=== PATIENT | male | born 1940 | race Caucasian/White ===

== ENCOUNTER 2019-07-25 04:25 | Outpatient (RCR) | payer MEDICARE, MEDICAID, SELFPAY | END 2019-08-02 00:01 | LOC: LAB 04:25 | PROVIDERS: Family Provider Family Medicine; Visit Provider Nurse Practitioner Family | DX: I10 Essential (primary) hypertension (principal); R55 Syncope and collapse; N17.9 Acute kidney failure, unspecified | CPT/HCPCS: 36415 ×2; 80048 ×2; 85025 ==

== ENCOUNTER 2019-08-22 09:01 | Outpatient (RCR) | payer MEDICARE, MEDICAID, SELFPAY ==
[2019-08-22 09:33] LABS: Potassium 5.1 mmol/L (3.5-5.1)
== END 2019-09-02 23:59 | disposition home or self-care (01) ==
LOC: LAB 09:01
PROVIDERS: Family Provider Family Medicine; Visit Provider Nurse Practitioner Family
DX: N18.3 Chronic kidney disease, stage 3 (moderate) (principal)
CPT/HCPCS: 84132

== ENCOUNTER 2019-11-02 16:03 | Inpatient (IN) | payer MEDICARE, MEDICAID, SELFPAY ==
[2019-11-02] VITALS (42 sets, daily range): BP systolic 85–125; BP diastolic 46–77; PULSE 73–87; RESP 17–45; TEMP 36.2–36.4; O2SAT 90–98; BMI 42.5
--- NOTE | 2019-11-02 16:33 | W.ED.SOB ---
Documented by User: Karl Blount DO 11/03/19 14:52 HPI - SOB/Dyspnea General: Chief Complaint: Shortness of Breath/Dyspnea Stated Complaint: sob Time Seen by Provider: 11/02/19 16:33 History of Present Illness: HPI Narrative: 79-year-old male resident of [facility] presents with complaints to shortness of breath and cough he has a history of congestive heart failure and diabetes. Patient had some chest pain today it was relieved by nitro came into the emergency room after he had a chest x-ray showing questionable pneumonia and started on Levaquin they felt he continued to worsen so they sent him to the ER. The [place] [facility] has been prohibiting visitors for the last 2 weeks out of concern for comorbid pandemic in the nation. MD elicited complaint: shortness of breath Pertinent past history: congestive heart failure Onset (ago): day(s) Context: recent illness Timing: constant Severity: moderate Known history of: congestive heart failure FOR[facility]LY [facility] ED PFSH: Medical History Anemia Dementia Diastolic heart failure Encephalomalacia Right anterior temporal lobe as per previous MRI 2018 Hyperlipidemia Hypertension Nephrolithiasis Stage III chronic kidney disease TIA (transient ischemic attack) Type 2 diabetes mellitus Surgical History H/O lithotripsy History of laparotomy Due to bleeding ulcers Family History (Updated 11/02/19 @ 21:06 by Jeronimo Woodruff MD) Denies family history of Diabetes Dementia Social History Smoking and tobacco status: never smoked Alcohol intake: never Substance/Drug Use: never Housing: Custodial Marital status: / Current occupational status: retired Physical Exam Const: GENERAL APPEARANCE: cooperative and comfortable HENMT: COMMON NORMALS: normocephalic, head/scalp atraumatic, hearing grossly normal bilaterally, external ears normal, EAC's normal, TM's normal bilaterally, nasal mucous membranes and turbinates normal, moist oral mucous membranes and oropharynx normal HEAD & SCALP: normocephalic and atraumatic NOSE: nasal mucous membranes and turbinates normal EXTERNAL EAR: Yes external ears normal EXTERNAL AUDITORY CANAL: EAC's normal TYMPANIC MEMBRANE: TM's normal bilaterally Eye: COMMON NORMALS: PERRL, EOMs intact bilaterally, conjunctivae normal and no scleral icterus CONJUNCTIVA: Yes conjunctivae normal PUPIL: Yes PERRL Neck/C-Spine: COMMON NORMALS: full ROM, no lymphadenopathy, supple and no JVD Lymph: LYMPHATIC: no lymphadenopathy noted and no lymphedema noted Resp: COMMON NORMALS: normal respiratory effort, no retractions, no use of accessory muscles and clear to auscultation bilaterally AUSCULTATION: clear to auscultation bilaterally Cardio: COMMON NORMALS: no JVD, regular rate, regular rhythm and no murmurs RATE: regular rate RHYTHM: regular rhythm GI: COMMON NORMALS: soft to palpation and no hepatosplenomegaly AUSCULTATION: Yes normoactive bowel sounds PALPATION: Yes soft, No tender, No guarding and Yes no hepatosplenomegaly Extremity: COMMON NORMALS: normal to inspection, normal capillary refill, no clubbing, cyanosis or edema, no calf tenderness and no pedal edema Skin: COMMON NORMALS: no rashes or lesions noted GENERAL SKIN EXAM: no rashes or lesions noted Course Vital Signs: Vital signs: Vital Signs Temperature 98.5 F 11/03/19 12:00 Pulse Rate 97 11/03/19 12:03 Respiratory Rate 20 H 11/03/19 12:03 Blood Pressure 99/51 11/03/19 12:00 Pulse Oximetry 93 11/03/19 12:03 MDM - SOB/Dyspnea MDM Narrative: Medical decision making narrative: Initially seen by myself and initial labs ordered appears patient has pneumonia signed out to Dr. Kearney for definitive disposition Lab Data: Labs: Lab Results 11/02/19 11/02/19 11/02/19 Range/Units 16:28 16:28 16:28 WBC 14.3 H (4.0-10.0) 10^3/ uL RBC 4.05 L (4.1-5.3) 10^6/u L Hgb 11.5 L (11.7-16.6) g/dL Hct 37.4 L (42.0-52.0) % MCV 92.3 (80-94) fL MCH 28.4 (28.0-34.0) pg MCHC 30.7 (30.0-36.0) g/dL RDW 14.2 (12.1-15.1) % Plt Count 252 (130-400) 10^3/c mm MPV 10.9 H (7.4-10.4) fL Neut % (Auto) 85.9 % Lymph % (Auto) 6.7 % Bryan % (Auto) 6.6 % Eos % (Auto) 0.1 % Baso % (Auto) 0.1 % Neut # (Auto) 12.3 H (1.8-7.7) 10^3/u L Lymph # (Auto) 1.0 (0.8-4.8) 10^3/u L Bryan # (Auto) 0.9 (0.2-0.9) 10^3/u L Eos # (Auto) 0.0 (0.0-0.8) 10^3/u L Baso # (Auto) 0.0 (0.0-0.1) 10^3/u L Nucleated RBC % (a uto) 0 % Nucleated RBCs # 0.0 /100WBC Specimen Type Sample Site ABG pH (7.35-7.45) ABG pCO2 (35-45) mmHg ABG pO2 (80.0-100.0) mmH g ABG HCO3 (22-26) mmol/L ABG O2 Saturation ABG Base Excess (-2.0-2.0) mmol/ L Bello Test A-a O2 Gradient (5-10) mmHg Hematocrit (42-52) % Hgb O2 Saturation (95-100) % Carboxyhemoglobin (0.4-20.1) %THgb Methemoglobin (0.4-1.5) % Total Hemoglobin (14-18) g/dL Ionized Calcium (1.1-1.4) mmol/L O2 Delivery Device O2 Liters/Min % Therapeutic Recreation Specialist ID Sodium 138 (136-145) mmol/L Potassium 6.1 H (3.5-5.1) mmol/L Chloride 109 H (98-107) mmol/L Carbon Dioxide 20 L (22-29) mmol/L Anion Gap 15.1 (5-19) BUN 64 H (8-23) mg/dL Creatinine 4.5 H (0.7-1.2) mg/dL Glucose 143 H (65-115) mg/dL POC Glucose (70-110) mg/dL Calculated Osmolal ity 287 (285-295) mOsm/k g Calcium 8.9 (8.5-10.5) mg/dL Total Bilirubin 0.2 (0.15-1.2) mg/dL AST 25 (0-40) U/L ALT 8 (0-41) U/L Alkaline Phosphata se 95 (40-130) IU/L Troponin T Baselin e 334 H* (0-15) ng/mL Troponin T 120 Min nenana (0-15) ng/mL Delta Troponin T (0-10) ABS# NT-Pro-B Natriuret Pep 95485 H (0-450) pg/mL Total Protein 6.7 (6.6-8.7) g/dL Albumin 3.0 L (3.5-5.2) g/dL Globulin 3.7 (1.3-4.6) g/dL Urine Color (Yellow) Urine Appearance (CLEAR) Urine pH (5-7) Ur Specific Gravit y (1.005-1.030) Urine Protein (Negative) Urine Glucose (UA) (Normal) Urine Ketones (Negative) Urine Blood (Negative) Urine Nitrate (Negative) Urine Bilirubin (NEGATIVE) Urine Urobilinogen (Negative) mg/dL Ur Leukocyte Violette ase (Negative) Urine RBC (0-2) /hpf Urine WBC (0-5) /hpf Ur Squamous Epith Cells (0-5) Urine Bacteria (NONE) 11/02/19 11/02/19 11/02/19 Range/Units 17:02 18:14 18:29 WBC (4.0-10.0) 10^3/ uL RBC (4.1-5.3) 10^6/u L Hgb (11.7-16.6) g/dL Hct (42.0-52.0) % MCV (80-94) fL MCH (28.0-34.0) pg MCHC (30.0-36.0) g/dL RDW (12.1-15.1) % Plt Count (130-400) 10^3/c mm MPV (7.4-10.4) fL Neut % (Auto) % Lymph % (Auto) % Bryan % (Auto) % Eos % (Auto) % Baso % (Auto) % Neut # (Auto) (1.8-7.7) 10^3/u L Lymph # (Auto) (0.8-4.8) 10^3/u L Bryan # (Auto) (0.2-0.9) 10^3/u L Eos # (Auto) (0.0-0.8) 10^3/u L Baso # (Auto) (0.0-0.1) 10^3/u L Nucleated RBC % (a uto) % Nucleated RBCs # /100WBC Specimen Type Arterial Sample Site Radial, right ABG pH 7.30 L (7.35-7.45) ABG pCO2 41.9 (35-45) mmHg ABG pO2 64.2 L (80.0-100.0) mmH g ABG HCO3 20.5 L (22-26) mmol/L ABG O2 Saturation 93.0 ABG Base Excess -5.7 L (-2.0-2.0) mmol/ L Bello Test Pos A-a O2 Gradient 32.7 H (5-10) mmHg Hematocrit 34.8 L (42-52) % Hgb O2 Saturation 91.1 L (95-100) % Carboxyhemoglobin 0.9 (0.4-20.1) %THgb Methemoglobin 1.1 (0.4-1.5) % Total Hemoglobin 11.4 L (14-18) g/dL Ionized Calcium 1.2 (1.1-1.4) mmol/L O2 Delivery Device Oxy mask O2 Liters/Min 11.0 % Therapeutic Recreation Specialist ID monro Sodium 142.0 (136-145) mmol/L Potassium 5.8 H (3.5-5.1) mmol/L Chloride (98-107) mmol/L Carbon Dioxide (22-29) mmol/L Anion Gap (5-19) BUN (8-23) mg/dL Creatinine (0.7-1.2) mg/dL Glucose 120.0 H (65-115) mg/dL POC Glucose (70-110) mg/dL Calculated Osmolal ity (285-295) mOsm/k g Calcium (8.5-10.5) mg/dL Total Bilirubin (0.15-1.2) mg/dL AST (0-40) U/L ALT (0-41) U/L Alkaline Phosphata se (40-130) IU/L Troponin T Baselin e (0-15) ng/mL Troponin T 120 Min nenana 334.4 H (0-15) ng/mL Delta Troponin T 0.4 (0-10) ABS# NT-Pro-B Natriuret Pep (0-450) pg/mL Total Protein (6.6-8.7) g/dL Albumin (3.5-5.2) g/dL Globulin (1.3-4.6) g/dL Urine Color Yellow (Yellow) Urine Appearance Sl hazy (CLEAR) Urine pH 5 (5-7) Ur Specific Gravit y 1.015 (1.005-1.030) Urine Protein 3+ H (Negative) Urine Glucose (UA) 2+ (Normal) Urine Ketones Negative (Negative) Urine Blood Neg (Negative) Urine Nitrate Negative (Negative) Urine Bilirubin Neg (NEGATIVE) Urine Urobilinogen Norm (Negative) mg/dL Ur Leukocyte Violette ase Negative (Negative) Urine RBC 0-4 H (0-2) /hpf Urine WBC 15-25 H (0-5) /hpf Ur Squamous Epith Cells 0-4 H (0-5) Urine Bacteria Trace (NONE) 11/02/19 11/02/19 Range/Units 18:32 19:15 WBC (4.0-10.0) 10^3/ uL RBC (4.1-5.3) 10^6/u L Hgb (11.7-16.6) g/dL Hct (42.0-52.0) % MCV (80-94) fL MCH (28.0-34.0) pg MCHC (30.0-36.0) g/dL RDW (12.1-15.1) % Plt Count (130-400) 10^3/c mm MPV (7.4-10.4) fL Neut % (Auto) % Lymph % (Auto) % Bryan % (Auto) % Eos % (Auto) % Baso % (Auto) % Neut # (Auto) (1.8-7.7) 10^3/u L Lymph # (Auto) (0.8-4.8) 10^3/u L Bryan # (Auto) (0.2-0.9) 10^3/u L Eos # (Auto) (0.0-0.8) 10^3/u L Baso # (Auto) (0.0-0.1) 10^3/u L Nucleated RBC % (a uto) % Nucleated RBCs # /100WBC Specimen Type Sample Site ABG pH (7.35-7.45) ABG pCO2 (35-45) mmHg ABG pO2 (80.0-100.0) mmH g ABG HCO3 (22-26) mmol/L ABG O2 Saturation ABG Base Excess (-2.0-2.0) mmol/ L Bello Test A-a O2 Gradient (5-10) mmHg Hematocrit (42-52) % Hgb O2 Saturation (95-100) % Carboxyhemoglobin (0.4-20.1) %THgb Methemoglobin (0.4-1.5) % Total Hemoglobin (14-18) g/dL Ionized Calcium (1.1-1.4) mmol/L O2 Delivery Device O2 Liters/Min % Therapeutic Recreation Specialist ID Sodium 134 L (136-145) mmol/L Potassium 5.8 H (3.5-5.1) mmol/L Chloride 105 (98-107) mmol/L Carbon Dioxide 21 L (22-29) mmol/L Anion Gap 13.8 (5-19) BUN 64 H (8-23) mg/dL Creatinine 4.4 H (0.7-1.2) mg/dL Glucose 187 H (65-115) mg/dL POC Glucose 128 (70-110) mg/dL Calculated Osmolal ity 282 L (285-295) mOsm/k g Calcium 8.4 L (8.5-10.5) mg/dL Total Bilirubin (0.15-1.2) mg/dL AST (0-40) U/L ALT (0-41) U/L Alkaline Phosphata se (40-130) IU/L Troponin T Baselin e (0-15) ng/mL Troponin T 120 Min nenana (0-15) ng/mL Delta Troponin T (0-10) ABS# NT-Pro-B Natriuret Pep (0-450) pg/mL Total Protein (6.6-8.7) g/dL Albumin (3.5-5.2) g/dL Globulin (1.3-4.6) g/dL Urine Color (Yellow) Urine Appearance (CLEAR) Urine pH (5-7) Ur Specific Gravit y (1.005-1.030) Urine Protein (Negative) Urine Glucose (UA) (Normal) Urine Ketones (Negative) Urine Blood (Negative) Urine Nitrate (Negative) Urine Bilirubin (NEGATIVE) Urine Urobilinogen (Negative) mg/dL Ur Leukocyte Violette ase (Negative) Urine RBC (0-2) /hpf Urine WBC (0-5) /hpf Ur Squamous Epith Cells (0-5) Urine Bacteria (NONE) Discharge Plan Discharge Patient Disposition: Admitted As Inpatient Admit Provider: Jeronimo Woodruff Clinical Impression: Acute kidney injury, Dementia Pneumonia Qualifiers: Pneumonia type: due to unspecified organism Laterality: bilateral Lung location: lower lobe of lung Qualified Code(s): J18.9 - Pneumonia, unspecified organism Condition: Stable Referrals: aMgaly Nelson MD [Primary Care Provider] - Todd Antony Jr, MD [Family Provider] - Interventions: ED Discharge Assessment Last Done: 11/02/19 21:01 Discharge Date/Time: 11/02/19 17:31 Sign Out Sign Out Data: Patient Sign Out occurred on 11/02/19 at 18:28. Patient's care was discussed, and care was transferred from Karl Blount DO to Mary Gibbs. Sign Out Comment: Hyperkalemia pneumonia acute on chronic renal failure admission Last updated by Karl Blount DO at 11/02/19 18:21 Coding Level of Care Code ED Continuity Coordinator for Chg Fwd Exam Comprehensive Documented by User: aMry Gibbs 11/02/19 23:43 HPI - SOB/Dyspnea General: Chief Complaint: Shortness of Breath/Dyspnea Stated Complaint: sob Time Seen by Provider: 11/02/19 16:33 PFSH ED PFSH: Medical History Anemia Dementia Diastolic heart failure Encephalomalacia Right anterior temporal lobe as per previous MRI 2018 Hyperlipidemia Hypertension Nephrolithiasis Stage III chronic kidney disease TIA (transient ischemic attack) Type 2 diabetes mellitus Surgical History H/O lithotripsy History of laparotomy Due to bleeding ulcers Family History (Updated 11/02/19 @ 21:06 by Jeronimo Woodruff MD) Denies family history of Diabetes Dementia Social History Smoking and tobacco status: never smoked Alcohol intake: never Substance/Drug Use: never Housing: Custodial Marital status: / Current occupational status: retired Course Vital Signs: Vital signs: Vital Signs Temperature 98.5 F 11/03/19 12:00 Pulse Rate 97 11/03/19 12:03 Respiratory Rate 20 H 11/03/19 12:03 Blood Pressure 99/51 11/03/19 12:00 Pulse Oximetry 93 11/03/19 12:03 MDM - SOB/Dyspnea MDM Narrative: Medical decision making narrative: Case inherited by me at change of shift from Dr. Blount. Please see his note for his history, physical exam and medical decision-making notes. When asked the patient states that he wishes to be a DO NOT RESUSCITATE or intubated. His [place] [facility] notes are conflicting but in the advanced directives area his last note states that he is a DNR. When asked to rest believe the patient does not want to be intubated or resuscitated. I tried to reach his emergency contacts that were listed but they did not answer. A message was left. The case was reviewed with Dr. Woodruff, he agrees with admission and will come to see the patient in the ER. 1954 -the patient's son Les Perera called back and stated that he has had this talk with his dad he confirms his dad does not want to be resuscitated and wants to be a DNR. Lab Data: Attestation: I reviewed the patient's lab results. Labs: Lab Results 11/02/19 11/02/19 11/02/19 Range/Units 16:28 16:28 16:28 WBC 14.3 H (4.0-10.0) 10^3/ uL RBC 4.05 L (4.1-5.3) 10^6/u L Hgb 11.5 L (11.7-16.6) g/dL Hct 37.4 L (42.0-52.0) % MCV 92.3 (80-94) fL MCH 28.4 (28.0-34.0) pg MCHC 30.7 (30.0-36.0) g/dL RDW 14.2 (12.1-15.1) % Plt Count 252 (130-400) 10^3/c mm MPV 10.9 H (7.4-10.4) fL Neut % (Auto) 85.9 % Lymph % (Auto) 6.7 % Bryan % (Auto) 6.6 % Eos % (Auto) 0.1 % Baso % (Auto) 0.1 % Neut # (Auto) 12.3 H (1.8-7.7) 10^3/u L Lymph # (Auto) 1.0 (0.8-4.8) 10^3/u L Bryan # (Auto) 0.9 (0.2-0.9) 10^3/u L Eos # (Auto) 0.0 (0.0-0.8) 10^3/u L Baso # (Auto) 0.0 (0.0-0.1) 10^3/u L Nucleated RBC % (a uto) 0 % Nucleated RBCs # 0.0 /100WBC Specimen Type Sample Site ABG pH (7.35-7.45) ABG pCO2 (35-45) mmHg ABG pO2 (80.0-100.0) mmH g ABG HCO3 (22-26) mmol/L ABG O2 Saturation ABG Base Excess (-2.0-2.0) mmol/ L Bello Test A-a O2 Gradient (5-10) mmHg Hematocrit (42-52) % Hgb O2 Saturation (95-100) % Carboxyhemoglobin (0.4-20.1) %THgb Methemoglobin (0.4-1.5) % Total Hemoglobin (14-18) g/dL Ionized Calcium (1.1-1.4) mmol/L O2 Delivery Device O2 Liters/Min % Therapeutic Recreation Specialist ID Sodium 138 (136-145) mmol/L Potassium 6.1 H (3.5-5.1) mmol/L Chloride 109 H (98-107) mmol/L Carbon Dioxide 20 L (22-29) mmol/L Anion Gap 15.1 (5-19) BUN 64 H (8-23) mg/dL Creatinine 4.5 H (0.7-1.2) mg/dL Glucose 143 H (65-115) mg/dL POC Glucose (70-110) mg/dL Calculated Osmolal ity 287 (285-295) mOsm/k g Calcium 8.9 (8.5-10.5) mg/dL Total Bilirubin 0.2 (0.15-1.2) mg/dL AST 25 (0-40) U/L ALT 8 (0-41) U/L Alkaline Phosphata se 95 (40-130) IU/L Troponin T Baselin e 334 H* (0-15) ng/mL Troponin T 120 Min nenana (0-15) ng/mL Delta Troponin T (0-10) ABS# NT-Pro-B Natriuret Pep 01400 H (0-450) pg/mL Total Protein 6.7 (6.6-8.7) g/dL Albumin 3.0 L (3.5-5.2) g/dL Globulin 3.7 (1.3-4.6) g/dL Urine Color (Yellow) Urine Appearance (CLEAR) Urine pH (5-7) Ur Specific Gravit y (1.005-1.030) Urine Protein (Negative) Urine Glucose (UA) (Normal) Urine Ketones (Negative) Urine Blood (Negative) Urine Nitrate (Negative) Urine Bilirubin (NEGATIVE) Urine Urobilinogen (Negative) mg/dL Ur Leukocyte Violette ase (Negative) Urine RBC (0-2) /hpf Urine WBC (0-5) /hpf Ur Squamous Epith Cells (0-5) Urine Bacteria (NONE) 11/02/19 11/02/19 11/02/19 Range/Units 17:02 18:14 18:29 WBC (4.0-10.0) 10^3/ uL RBC (4.1-5.3) 10^6/u L Hgb (11.7-16.6) g/dL Hct (42.0-52.0) % MCV (80-94) fL MCH (28.0-34.0) pg MCHC (30.0-36.0) g/dL RDW (12.1-15.1) % Plt Count (130-400) 10^3/c mm MPV (7.4-10.4) fL Neut % (Auto) % Lymph % (Auto) % Bryan % (Auto) % Eos % (Auto) % Baso % (Auto) % Neut # (Auto) (1.8-7.7) 10^3/u L Lymph # (Auto) (0.8-4.8) 10^3/u L Bryan # (Auto) (0.2-0.9) 10^3/u L Eos # (Auto) (0.0-0.8) 10^3/u L Baso # (Auto) (0.0-0.1) 10^3/u L Nucleated RBC % (a uto) % Nucleated RBCs # /100WBC Specimen Type Arterial Sample Site Radial, right ABG pH 7.30 L (7.35-7.45) ABG pCO2 41.9 (35-45) mmHg ABG pO2 64.2 L (80.0-100.0) mmH g ABG HCO3 20.5 L (22-26) mmol/L ABG O2 Saturation 93.0 ABG Base Excess -5.7 L (-2.0-2.0) mmol/ L Bello Test Pos A-a O2 Gradient 32.7 H (5-10) mmHg Hematocrit 34.8 L (42-52) % Hgb O2 Saturation 91.1 L (95-100) % Carboxyhemoglobin 0.9 (0.4-20.1) %THgb Methemoglobin 1.1 (0.4-1.5) % Total Hemoglobin 11.4 L (14-18) g/dL Ionized Calcium 1.2 (1.1-1.4) mmol/L O2 Delivery Device Oxy mask O2 Liters/Min 11.0 % Therapeutic Recreation Specialist ID monro Sodium 142.0 (136-145) mmol/L Potassium 5.8 H (3.5-5.1) mmol/L Chloride (98-107) mmol/L Carbon Dioxide (22-29) mmol/L Anion Gap (5-19) BUN (8-23) mg/dL Creatinine (0.7-1.2) mg/dL Glucose 120.0 H (65-115) mg/dL POC Glucose (70-110) mg/dL Calculated Osmolal ity (285-295) mOsm/k g Calcium (8.5-10.5) mg/dL Total Bilirubin (0.15-1.2) mg/dL AST (0-40) U/L ALT (0-41) U/L Alkaline Phosphata se (40-130) IU/L Troponin T Baselin e (0-15) ng/mL Troponin T 120 Min nenana 334.4 H (0-15) ng/mL Delta Troponin T 0.4 (0-10) ABS# NT-Pro-B Natriuret Pep (0-450) pg/mL Total Protein (6.6-8.7) g/dL Albumin (3.5-5.2) g/dL Globulin (1.3-4.6) g/dL Urine Color Yellow (Yellow) Urine Appearance Sl hazy (CLEAR) Urine pH 5 (5-7) Ur Specific Gravit y 1.015 (1.005-1.030) Urine Protein 3+ H (Negative) Urine Glucose (UA) 2+ (Normal) Urine Ketones Negative (Negative) Urine Blood Neg (Negative) Urine Nitrate Negative (Negative) Urine Bilirubin Neg (NEGATIVE) Urine Urobilinogen Norm (Negative) mg/dL Ur Leukocyte Violette ase Negative (Negative) Urine RBC 0-4 H (0-2) /hpf Urine WBC 15-25 H (0-5) /hpf Ur Squamous Epith Cells 0-4 H (0-5) Urine Bacteria Trace (NONE) 11/02/19 11/02/19 Range/Units 18:32 19:15 WBC (4.0-10.0) 10^3/ uL RBC (4.1-5.3) 10^6/u L Hgb (11.7-16.6) g/dL Hct (42.0-52.0) % MCV (80-94) fL MCH (28.0-34.0) pg MCHC (30.0-36.0) g/dL RDW (12.1-15.1) % Plt Count (130-400) 10^3/c mm MPV (7.4-10.4) fL Neut % (Auto) % Lymph % (Auto) % Bryan % (Auto) % Eos % (Auto) % Baso % (Auto) % Neut # (Auto) (1.8-7.7) 10^3/u L Lymph # (Auto) (0.8-4.8) 10^3/u L Bryan # (Auto) (0.2-0.9) 10^3/u L Eos # (Auto) (0.0-0.8) 10^3/u L Baso # (Auto) (0.0-0.1) 10^3/u L Nucleated RBC % (a uto) % Nucleated RBCs # /100WBC Specimen Type Sample Site ABG pH (7.35-7.45) ABG pCO2 (35-45) mmHg ABG pO2 (80.0-100.0) mmH g ABG HCO3 (22-26) mmol/L ABG O2 Saturation ABG Base Excess (-2.0-2.0) mmol/ L Bello Test A-a O2 Gradient (5-10) mmHg Hematocrit (42-52) % Hgb O2 Saturation (95-100) % Carboxyhemoglobin (0.4-20.1) %THgb Methemoglobin (0.4-1.5) % Total Hemoglobin (14-18) g/dL Ionized Calcium (1.1-1.4) mmol/L O2 Delivery Device O2 Liters/Min % Therapeutic Recreation Specialist ID Sodium 134 L (136-145) mmol/L Potassium 5.8 H (3.5-5.1) mmol/L Chloride 105 (98-107) mmol/L Carbon Dioxide 21 L (22-29) mmol/L Anion Gap 13.8 (5-19) BUN 64 H (8-23) mg/dL Creatinine 4.4 H (0.7-1.2) mg/dL Glucose 187 H (65-115) mg/dL POC Glucose 128 (70-110) mg/dL Calculated Osmolal ity 282 L (285-295) mOsm/k g Calcium 8.4 L (8.5-10.5) mg/dL Total Bilirubin (0.15-1.2) mg/dL AST (0-40) U/L ALT (0-41) U/L Alkaline Phosphata se (40-130) IU/L Troponin T Baselin e (0-15) ng/mL Troponin T 120 Min nenana (0-15) ng/mL Delta Troponin T (0-10) ABS# NT-Pro-B Natriuret Pep (0-450) pg/mL Total Protein (6.6-8.7) g/dL Albumin (3.5-5.2) g/dL Globulin (1.3-4.6) g/dL Urine Color (Yellow) Urine Appearance (CLEAR) Urine pH (5-7) Ur Specific Gravit y (1.005-1.030) Urine Protein (Negative) Urine Glucose (UA) (Normal) Urine Ketones (Negative) Urine Blood (Negative) Urine Nitrate (Negative) Urine Bilirubin (NEGATIVE) Urine Urobilinogen (Negative) mg/dL Ur Leukocyte Violette ase (Negative) Urine RBC (0-2) /hpf Urine WBC (0-5) /hpf Ur Squamous Epith Cells (0-5) Urine Bacteria (NONE) Discharge Plan Discharge Patient Disposition: Admitted As Inpatient Admit Provider: Jeroniom Woodruff Clinical Impression: Acute kidney injury, Dementia Pneumonia Qualifiers: Pneumonia type: due to unspecified organism Laterality: bilateral Lung location: lower lobe of lung Qualified Code(s): J18.9 - Pneumonia, unspecified organism Condition: Stable Referrals: Magaly Nelson MD [Primary Care Provider] - Todd Antony Jr, MD [Family Provider] - Interventions: ED Discharge Assessment Last Done: 11/02/19 21:01 Discharge Date/Time: 11/02/19 17:31 Sign Out Sign Out Data: Patient Sign Out occurred on 11/02/19 at 18:28. Patient's care was discussed, and care was transferred from Karl Blount DO to Mary Gibbs. Sign Out Comment: Hyperkalemia pneumonia acute on chronic renal failure admission Last updated by Karl Blount DO at 11/02/19 18:21 Coding Level of Care Code ED Continuity Coordinator for Chg Fwd Exam Comprehensive
--- NOTE | 2019-11-02 16:38 | ECG_ITS ---
Measurements Intervals [place] Rate: 75 P: -14 [place]: 96 QRS: 59 QRSD: 122 T: 60 QT: 399 QTc: 448 SINUS RHYTHM WITH SINUS ARRHYTHMIA WITH SHORT [place] INTERVAL MODERATE INTRAVENTRICULAR CONDUCTION DELAY [110+ ms QRS DURATION] MODERATE ST DEPRESSION [0.05+ mV ST DEPRESSION] Compared to ECG 02/26/2018 05:34:06 Short [place] interval now present ST (T wave) deviation now present Ventricular premature complex(es) no longer present T-wave abnormality no longer present Electronically Signed On 11-02-2019 22:00:04 CDT by Malorie Youngblood M.D. [id number]
--- NOTE | 2019-11-02 16:38 | XR_ITS ---
WS: [id number] PORTABLE CHEST HISTORY: dyspnea/cough COMPARISON: 02/27/2018, chest CT 11/02/2019 Mild pulmonary hyperinflation. Diffuse haziness over both lungs with consolidations in the mid and lo wer lungs. Bilateral pleural effusions are [id number]. Cardiac size: Mildly enlarged cardiac silhouette. Mediastinum/Aorta: Normal mediastinum. Prior rotator cuff repair on the LEFT. XR/XR chest 1V portable [id number] IMPRESSION: 1. Bilateral lower lobe pneumonia with mild pulmonary venous congestion. 2. Small to moderate bilateral pleural effusions.
[2019-11-02 16:55] LABS: Basophils % 0.1 %; Eosinophils % 0.1 %; Hematocrit 37.4 % (42.0-52.0); Hemoglobin 11.5 g/dL (11.7-16.6); Lymphocytes % 6.7 %; Mean Corpuscular HGB Conc 30.7 g/dL (30.0-36.0); Mean Corpuscular Hemoglobin 28.4 pg (28.0-34.0); Mean Corpuscular Volume 92.3 fL (80-94); Mean Platelet Volume 10.9 fL (7.4-10.4); Monocytes # 0.9 10^3/uL (0.2-0.9); Monocytes % 6.6 %; Neutrophils # 12.3 10^3/uL (1.8-7.7); Neutrophils % 85.9 %; Nucleated Red Blood Cells % 0 %; Platelet Count 252 10^3/cmm (130-400); Red Blood Count 4.05 10^6/uL (4.1-5.3); Red Cell Distribution Width 14.2 % (12.1-15.1); White Blood Count 14.3 10^3/uL (4.0-10.0)
[2019-11-02 17:20] LABS: Alanine Aminotransferase 8 U/L (0-41); Alkaline Phosphatase 95 IU/L (40-130); Anion Gap 15.1 (5-19); Aspartate Amino Transferase 25 U/L (0-40); Blood Urea Nitrogen 64 mg/dL (8-23); Calcium 8.9 mg/dL (8.5-10.5); Carbon Dioxide 20 mmol/L (22-29); Chloride 109 mmol/L (98-107); Globulin 3.7 g/dL (1.3-4.6); Glucose 143 mg/dL (65-115); Osmolality Calculated 287 mOsm/kg (285-295); Potassium 6.1 mmol/L (3.5-5.1); Sodium 138 mmol/L (136-145); Total Bilirubin 0.2 mg/dL (0.15-1.2); Total Protein 6.7 g/dL (6.6-8.7)
[2019-11-02 17:26] LABS: Add Urine Microscopic? YES; Bilirubin Urine Neg (NEGATIVE); Blood Urine Neg (Negative); Glucose Urine UA 2+ (Normal); Ketones Urine Negative (Negative); Leukocyte Esterase Urine Negative (Negative); Nitrate Urine Negative (Negative); Protein Urine 3+ (Negative); Specific Gravity, Urine 1.015 (1.005-1.030); Urine Appearance SL Hazy (CLEAR); Urine Color Yellow (Yellow); Urobilinogen Urine Norm (Negative); pH Urine 5 (5-7)
[2019-11-02 17:26] LABS: Troponin(5th) Baseline 334 ng/mL (0-15)
[2019-11-02 17:29] LABS: RBC Urine 0-4 /hpf (0-2)
[2019-11-02 17:30] LABS: Bacteria Urine TRACE; Squamous Epithelial Cell Urine 0-4 (0-5); WBC Urine 15-25 /hpf (0-5)
[2019-11-02 17:31] LABS: Add Urine Culture? No
[2019-11-02 17:49] LABS: NT Pro B Type Natriuretic Pept 45095 pg/mL (0-450)
[2019-11-02 18:27] LABS: ABG PCO2 41.9 mmHg (35-45); Alveolar-Arterial Oxygen Gradi 32.7 mmHg (5-10); Arterial Blood Gas Hematocrit 34.8 % (42-52); Base Excess ABG -5.7 mmol/L (-2.0-2.0); Blood Gas Allen Test Pos; Blood Gas Sample Site Radial, right; Blood Gas Sample Type Arterial; Carboxyhemoglobin 0.9 %THgb (0.4-20.1); HCO3 ABG 20.5 mmol/L (22-26); HGB O2 Sat 91.1 % (95-100); Ionized Calcium Level - ABG 1.2 mmol/L (1.1-1.4); Methemoglobin 1.1 % (0.4-1.5); Oxygen Device OXY MASK; PO2 ABG 64.2 mmHg (80.0-100.0); Potassium Level - ABG 5.8 mmol/L (3.5-5.0); Total Hemoglobin 11.4 g/dL (14-18)
[2019-11-02] MEDS: calcium gluconate 0.1 gm/mL 10% SDV 10mL 1 GM IVP (18:31)
[2019-11-02] MEDS: dextrose 50% syringe 50 mL IVP (18:32)
[2019-11-02] MEDS: insulin regular-human 100 units/1 mL 10 UNIT IVP (18:34)
[2019-11-02] MEDS: sodium bicarbonate 8.4% 1 mEq/mL 50mL Syr 50 MEQ IVP (18:36)
[2019-11-02 18:37] LABS: Glucose Point of Care 128 mg/dL (70-110)
--- NOTE | 2019-11-02 18:38 | ECG_ITS ---
Measurements Intervals [place] Rate: 80 P: 59 [place]: 154 QRS: 71 QRSD: 122 T: 73 QT: 392 QTc: 455 SINUS RHYTHM WITH MARKED SINUS ARRHYTHMIA MODERATE INTRAVENTRICULAR CONDUCTION DELAY [110+ ms QRS DURATION] Compared to ECG 11/02/2019 16:17:31 Short [place] interval no longer present ST (T wave) deviation no longer present Electronically Signed On 11-03-2019 18:14:54 CDT by Jeronimo Peter M.D. [id number]
[2019-11-02] MEDS: levofloxacin-dextrose 5 % 750 MG/150 ML PREMIX 75 MG IV (18:55)
[2019-11-02 19:15] LABS: Troponin 5 2HR Delta 0.4 ABS# (0-10)
[2019-11-02 19:22] LABS: Troponin 5 2HR 334.4 ng/mL (0-15)
[2019-11-02 19:36] LABS: Anion Gap 13.8 (5-19); Blood Urea Nitrogen 64 mg/dL (8-23); Calcium 8.4 mg/dL (8.5-10.5); Carbon Dioxide 21 mmol/L (22-29); Chloride 105 mmol/L (98-107); Glucose 187 mg/dL (65-115); Osmolality Calculated 282 mOsm/kg (285-295); Potassium 5.8 mmol/L (3.5-5.1); Sodium 134 mmol/L (136-145)
--- NOTE | 2019-11-02 19:53 | CTR_ITS ---
PROCEDURE INFORMATION: Exam: CT Chest Without Contrast Exam date and time: 11/02/2019 8:27 PM Age: 79 years old Clinical indication: Other: Alex, acidosis; Other: Hypoxia; Prior surgery; Surgery type: Lithotripsy, laparotomy; Additional info: Hypoxia, alex, and acidosis TECHNIQUE: Imaging protocol: Computed tomography of the chest without contrast. Total DLP: 2358.2 mGy-cm Radiation optimization: All CT scans at this facility use at least one of these dose optimization techniques: automated exposure control; mA and/or kV adjustment per patient size (includes targeted exams where dose is matched to clinical indication); or iterative reconstruction. COMPARISON: No relevant prior studies available. FINDINGS: Thyroid: Small right thyroid nodule measuring 12 mm. Lungs: Patchy subsegmental and segmental consolidated alveolar airspace disease bilateral lower lobes which could reflect atelectasis, pneumonia, and/or focal edema. Subsegmental densely consolidated alveolar airspace disease posterior segment right upper lobe of the or atelectasis and/or pneumonia. Patchy ground-glass interstitial lung disease bilateral upper lobes, right middle lobe, lingula, and anterior segments of the bilateral lower lobes. Evidence of early subsegmental consolidation base of the right middle lobe. Also note of interlobular and interseptal thickening. In addition to active pneumonitis/pneumonia consideration should be given to pulmonary edema of congestive heart failure. Pleural space: Bilateral moderate volume pleural effusions. Heart: Cardiomegaly. Extensive 3 vessel coronary artery disease. Calcified mitral annulus. No visible pericardial effusion. Central pulmonary hyperemia. Aorta: The thoracic aorta is nonaneurysmal but demonstrates moderate arterial sclerotic disease. Tortuous thoracic aorta which can be seen in hypertensive cardiovascular disease.. Lymph nodes: Marginally prominent mediastinal and hilar lymph nodes which may be reactive. Bones/joints: Evidence of previous left shoulder rotator cuff repair. Age-appropriate degenerative disease and degenerative disc disease of the visualized spine. No visible acute musculoskeletal pathology. Soft tissues: Evidence of mild male gynecomastia. IMPRESSION: 1. Bilateral mixed ground-glass interstitial lung disease and consolidated alveolar airspace disease which could reflect active pneumonitis/pneumonia although pulmonary edema of congestive heart failure is a differential consideration with atelectasis and/or focal edema. Please review discussion in text above. 2. Bilateral moderate volume pleural effusions. 3. Cardiomegaly with extensive coronary artery disease and central pulmonary hyperemia. 4. Evidence of mild male gynecomastia. 5. Small right thyroid nodule COMMENTS: Consistent with the [employer]'s Incidental Findings Committee white paper (J Am Krishna Radiol 2015): In patients aged 35 years and older with an incidental thyroid nodule equal to or greater than 1.[address], MRI or extrathyroidal US, further evaluation with dedicated thyroid US is recommended for patients with normal life expectancy and without comorbidities. For smaller nodules without suspicious features, no further evaluation or follow up is recommended. PROCEDURE INFORMATION: Exam: CT Abdomen And Pelvis Without Contrast Exam date and time: 11/02/2019 8:27 PM Age: 79 years old Clinical indication: Other: Alex, acidosis; Other: Hypoxia; Prior surgery; Surgery type: Lithotripsy, laparotomy; Additional info: Hypoxia, alex, and acidosis TECHNIQUE: Imaging protocol: Computed tomography of the abdomen and pelvis without contrast. Total DLP: 2358.2 mGy-cm Radiation optimization: All CT scans at this facility use at least one of these dose optimization techniques: automated exposure control; mA and/or kV adjustment per patient size (includes targeted exams where dose is matched to clinical indication); or iterative reconstruction. COMPARISON: No relevant prior studies available. FINDINGS: Liver: Liver unremarkable. Gallbladder and bile ducts: Gallbladder contains several small gallstones. Largest stone measures 9 mm. No visible intra or extrahepatic biliary ectasia. Pancreas: Pancreas unremarkable for age. No visible pancreatic ductal ectasia. Spleen: Spleen unremarkable. Adrenals: Small right adrenal adenoma measuring approximately 15 mm. Left adrenal gland are unremarkable. Kidneys and ureters: Kidneys without evidence for hydronephrosis or perinephric fluid. Parenchymal scarring superior pole right kidney with dystrophic nephrocalcinosis. No visible obstructing nephrolithiasis or ureteral lithiasis. Stomach and bowel: Markedly redundant colon. No visible diverticulitis. Nonobstructive bowel pattern. No visible adynamic or reactive ileus. No visible epiploic appendagitis. Appendix: No evidence of appendicitis. Intraperitoneal space: Unremarkable. No free air. No significant fluid collection. Vasculature: The abdominal aorta is nonaneurysmal. Moderate arterial sclerotic disease. Lymph nodes: Unremarkable. No enlarged lymph nodes. Bladder: Diffuse bladder wall thickening which may be secondary to chronic cystitis or from chronic partial bladder outlet obstruction. Reproductive: Prostate hypertrophy. Bones/joints: No visible active musculoskeletal pathology. Age-appropriate degenerative disease. Bilateral spondylolysis L5/S1 with grade 1 spondylolisthesis. Advanced degenerative disc disease with disc space height loss and vacuum disc phenomenon L4/L5 and L5/S1. No visible osteolytic or osteoblastic destructive process. Soft tissues: Small umbilical hernia containing fat only. Other findings: Obesity. CT/CT chest abd pel wo con IMPRESSION: 1. No definite evidence of acute abdominal or pelvic pathologic process. 2. Cholelithiasis. 3. Small right adrenal adenoma. 4. Diffuse bladder wall thickening which may be secondary to chronic cystitis or from chronic partial bladder outlet obstruction secondary to prostate hypertrophy. COMMENTS: 1. Consistent with the [employer]'s Incidental Findings Committee white paper (J Am Krishna Radiol 2017): For any incidental adrenal lesion greater than 1.0 cm but less than or equal to 4.0 cm classified in this report as benign or likely benign (including classification as an adenoma or myelolipoma), no follow-up imaging is recommended per consensus recommendations based on imaging criteria. Further lab evaluation could be pursued if warranted based on clinical findings. Radiation Dose CTDIVOL = (mGy): DLP = 2358.2~2358.2 (mGy-cm)
--- NOTE | 2019-11-02 19:59 | P.HP_ITS ---
Providers/Chief Complaint Primary Care Provider: Magaly Nelson MD Chief Complaint: sob History of Present Illness Lester Perera is a 79 year old male is a resident of [facility] with past medical history of diastolic congestive heart failure, nephrolithiasis, diabetes was sent in because of respiratory distress. Patient is not a reliable historian. My review of previous records revealed diagnoses of mild cognitive impairment, right temporal encephalomalacia, DNR/DNI status. I called [facility]. They are stating that he was in his usual state of health i.e. watches television most of the day, uses walker for ambulation, fairly independent for daily activities, compliant with his medications, does not use oxygen, until 2 days ago he started having respiratory distress and chest discomfort. Chest discomfort was getting relieved with nitroglycerin at the prison. This was getting worse on laying flat. He got a chest x-ray which was concerning for an infiltrate hence was put on Levaquin. He kept desaturating on 3 L and was transferred to our facility for further evaluation. long term has been following lock down measures for last 2 weeks with screening for employees as well, no one has visited him. They have not noticed any fever, vomiting, productive cough for Mr. Perera. He has not been on any diuretics at the facility. Diagnostics in ER revealed multiorgan failure, tachypnea, hypoxia, bilateral infiltrates, vascular congestion, ALISSA, hyperkalemia, and sepsis He was given Levaquin and 1L normal saline for resuscitation His initial blood pressure was soft 96/70 which improved with fluid resuscitation By the time I evaluated the patient he was on 15 L facemask saturating 98%, blood pressure 105/60 He was awake but not able to give me the details ER physician has sent SARS Covid test Son Les Perera phone #[phone] has been contacted he also reiterated goals of care DNR/DNI Was updated about his medical condition, questions were answered to his s atisfaction Review of Systems General: Reports: ROS unobtainable due to medical condition (Cognitive impairment and encephalomalacia) Medications/Allergies Home Medications Medication Instructions Recorded Confirmed Last Taken Type Enema Disposable See Rx Instructions .ROUTE .COMPLEX 11/02/19 11/02/19 Unknown History acetaminophen 1,000 mg PO BID PRN 11/02/19 11/02/19 Unknown History albuterol sulfate See Rx Instructions .ROUTE .COMPLEX 11/02/19 11/02/19 11/02/19 History albuterol sulfate [ProAir HFA] 2 puff INHALATION 6XD PRN 11/02/19 11/02/19 Unknown History alum-mag hydroxide-simeth [Mylanta 7.5 ml PO QID PRN 11/02/19 11/02/19 11/02/19 History Maximum Strength] amlodipine 10 mg PO DAILY 11/02/19 11/02/19 11/02/19 History aspirin [Aspir-81] 81 mg PO DAILY 11/02/19 11/02/19 11/02/19 History bisacodyl 5 mg PO PRN 11/02/19 11/02/19 Unknown History bisacodyl 10 mg OR DAILY PRN 11/02/19 11/02/19 Unknown History hydralazine 50 mg PO TID 11/02/19 11/02/19 11/02/19 History inhalational spacing device [Space 11/02/19 11/02/19 Unknown History Chamber Plus] irbesartan 75 mg PO DAILY 11/02/19 11/02/19 11/02/19 History lanolin apvckxj-af-z.pet-ceres See Rx Instructions .ROUTE .COMPLEX 11/02/19 11/02/19 11/02/19 History [Minerin Creme] levofloxacin [Levaquin] See Rx Instructions .ROUTE .COMPLEX 11/02/19 11/02/19 11/02/19 History magnesium hydroxide [Milk of 400 mg PO DAILY PRN 11/02/19 11/02/19 Unknown History Magnesia] metoprolol succinate 25 mg PO DAILY 11/02/19 11/02/19 11/02/19 History nitroglycerin [Nitrostat] See Rx Instructions .ROUTE .COMPLEX 11/02/19 11/02/19 11/01/19 History rosuvastatin 5 mg PO DAILY 11/02/19 11/02/19 11/01/19 History Allergies Allergy/AdvReac Type Severity Reaction Status Date / Time ezetimibe Allergy Unknown Verified 11/02/19 18:24 lovastatin Allergy Unknown Verified 11/02/19 18:24 Penicillins Allergy Unknown Verified 11/02/19 18:24 simvastatin Allergy Unknown Verified 11/02/19 18:24 PFSH Acute PFSH: Medical History Anemia Dementia Diastolic heart failure Encephalomalacia Right anterior temporal lobe as per previous MRI 2018 Hyperlipidemia Hypertension Nephrolithiasis Stage III chronic kidney disease TIA (transient ischemic attack) Type 2 diabetes mellitus Surgical History H/O lithotripsy History of laparotomy Due to bleeding ulcers Family History (Updated 11/02/19 @ 21:06 by Jeronimo Woodruff MD) Denies family history of Diabetes Dementia Social History Smoking and tobacco status: never smoked Alcohol intake: never Substance/Drug Use: never Housing: [facility] Marital status: / Current occupational status: retired Vitals/I&O/Wt Last Vital Signs Temp 97.5 F L 11/02/19 16:05 Pulse 78 11/02/19 18:00 Resp 25 H 11/02/19 18:00 BP 101/69 11/02/19 18:00 Pulse Ox 92 11/02/19 18:00 Weight last 48 hrs Weight 127.006 kg Physical Exam Narrative: EXAM NARRATIVE: Morbidly obese male with active respiratory distress currently saturating well on 15 L liters facemask Fluids running at the bedside, systolic blood pressure 105 Patient is able to follow my commands but keeps repeating his same answer I do not know S1, S2, signs of active heart failure positive bilateral lower extremity edema, hard to assess his JVD Bilateral breath sounds with rhonchi without any active wheezing, he is using his sternocleidomastoid muscle Visceral obesity, sluggish bowel sounds, bruises over anterior abdominal wall Neurological status not be able to examine properly because of his baseline cognitive impairment and possible septic encephalopathy Bilateral lower extremity edema 1+ No active signs of gangrene ulcer or ischemia of lower extremity Data : 11/02/19 16:28 11/02/19 19:15 A&P Assessment and plan (1) Pneumonia: Status: Acute Qualifiers: Laterality: bilateral Lung location: lower lobe of lung Pneumonia type: due to unspecified organism Qualified Code(s): J18.9 - Pneumonia, unspecified organism (2) Acute kidney injury: Status: Acute (3) Dementia: Status: Acute (4) Acute exacerbation of CHF (congestive heart failure): Status: Acute (5) Sepsis: Status: Acute (6) Hypoxic: Status: Acute (7) Encephalopathy: Status: Acute Additional A&P Information Sepsis secondary to pneumonia Sepsis criteria met with leukocytosis, tachypnea, hypotension Chest x-ray is consistent with bilateral infiltrates He is from prison with pneumonia severity index 117 class IV , moderate mortality risk factor, hence would use vancomycin Zosyn and Levaquin Bacterial antigen, sputum and blood cultures to be obtained considering severity of index Septic encephalopathy with underlying dementia, patient is DNR/DNI confirmed with his son, will use BiPAP to decrease the work of breathing, will obtain CT chest without contrast Judicious use of fluids secondary to active CHF Active exacerbation of diastolic congestive heart failure Preserved ejection fraction as per previous echocardiogram We will obtain another echo in the morning I believe this is secondary to pulmonary insult Considering hypotension would hold off on diuretics and discontinue fluids Acute on chronic kidney disease stage III secondary to cardiorenal etiology Hold off nephrotoxic agents Multiple insults to cause ALISSA i.e. hypotension, cardiorenal, sepsis We will obtain CT abdomen to rule out hydronephrosis because of his previous history of nephrolithiasis, Streeter catheter only drained 100 mL of urine Hyperkalemia: Seems secondary to medications and ALISSA no EKG changes for hyperkalemia, he was in ER for hyperkalemia, for now I would use Kayexalate, initial potassium 6.1, after treatment potassium came down to 5.8, High troponin: Patient is denying active chest pain however not reliable historian, EKG review does not reveal any ST segment elevation however mild ST depression noted with short OR interval without delta waves, High troponin could be secondary to sepsis and multiorgan failure, would hold off on anticoagulation at the moment Hypocalcemia: Corrected albumin calcium level 9, will give 1 g of calcium gluconate this will also help his hyperkalemia Type 2 diabetes: Consistent carbohydrate diet with sliding scale Hypertension: Holding antihypertensives at the moment secondary to hypotension DNR/DNI Heparin DVT prophylaxis Attestations Medical Necessity Statement*: Needs ICU care because of multiorgan failure with sepsis, CHF and pneumonia, anticipating stay in the hospital course more than 2 midnights secondary to high severity index of pneumonia Time Spent in Patient Care: 50 Coding Level of Care Code Acute Jackscrew Man for Chg Fwd Diagnoses Pneumonia J18.9 Laterality: bilateral Lung location: lower lobe of lung Pneumonia type: due to unspecified organism Acute kidney injury N17.9 Dementia F03.90 Acute exacerbation of CHF (congestive heart failure) I50.9 Sepsis A41.9 Hypoxic R09.02 Encephalopathy G93.40
--- NOTE | 2019-11-02 20:08 | PC.NURSE ---
Dr. Gibbs was talking with patient's son about Code status. I took phone and witnessed that the family does want the patient to be a DNR.
[2019-11-02] MEDS: albuterol 8 gm MDI 2 PUFF INHALATION (22:20)
--- NOTE | 2019-11-02 22:38 | ECG_ITS ---
Measurements Intervals [place] Rate: 76 P: 46 [place]: 151 QRS: 64 QRSD: 113 T: 66 QT: 393 QTc: 442 ELECTRONIC VENTRICULAR PACEMAKER ABNORMAL RHYTHM ECG WARNING: DATA QUALITY MAY AFFECT INTERPRETATION Compared to ECG 11/02/2019 16:17:31 Sinus rhythm no longer present Sinus arrhythmia no longer present Short [place] interval no longer present Intraventricular conduction delay no longer present ST (T wave) deviation no longer present Electronically Signed On 11-03-2019 18:15:01 CDT by Jeronimo Peter M.D. [email or web address]
[2019-11-02] MEDS: heparin 5,000 unit/mL INJ 1 mL 5000 UNIT SUBCUT (22:47)
[2019-11-02] MEDS: sodium polystyrene sulfonate 15 gm/60 mL Btl PO (22:48)
[2019-11-02 23:24] LABS: Troponin 5 6HR 365.4 ng/mL (0-15); Troponin 5 6HR Delta 31.4 ng/L (0-12)
[2019-11-03] VITALS (34 sets, daily range): BP systolic 99–138; BP diastolic 51–81; PULSE 84–105; RESP 14–28; TEMP 36.5–37; O2SAT 89–98
--- NOTE | 2019-11-03 02:04 | PC.NURSE ---
0015 pt continues to bend arm causing iv not to infuse. 20 ga piv started to right hand x 1 attempt. candis 0130 pt continues to be oriented to self only refuses to keep pulse ox on finger . replaced to left great toe. 20 ga piv to hand pulled out by pt. resited to right lateral hand x 1 attempt. secured . will monitor candis.
[2019-11-03 05:17] LABS: Basophils % 0.4 %; Eosinophils % 0.2 %; Hematocrit 33.4 % (42.0-52.0); Hemoglobin 10.2 g/dL (11.7-16.6); Lymphocytes # 0.8 10^3/uL (0.8-4.8); Lymphocytes % 7.3 %; Mean Corpuscular HGB Conc 30.5 g/dL (30.0-36.0); Mean Corpuscular Hemoglobin 28.3 pg (28.0-34.0); Mean Corpuscular Volume 92.5 fL (80-94); Mean Platelet Volume 10.8 fL (7.4-10.4); Monocytes # 0.6 10^3/uL (0.2-0.9); Monocytes % 5.9 %; Neutrophils # 9.3 10^3/uL (1.8-7.7); Neutrophils % 85.6 %; Nucleated Red Blood Cells % 0 %; Platelet Count 222 10^3/cmm (130-400); Red Blood Count 3.61 10^6/uL (4.1-5.3); Red Cell Distribution Width 14.4 % (12.1-15.1); White Blood Count 10.9 10^3/uL (4.0-10.0)
--- NOTE | 2019-11-03 05:45 | PC.NURSE ---
pt has pulled out a total of [address] rankin will leave iv out until pt has sitter at bedside for constant monitoring. bed alarm active. bath care and linen change done at htis time. candis.
[2019-11-03 05:47] LABS: Anion Gap 15.4 (5-19); Blood Urea Nitrogen 67 mg/dL (8-23); Calcium 8.7 mg/dL (8.5-10.5); Carbon Dioxide 21 mmol/L (22-29); Chloride 112 mmol/L (98-107); Glucose 115 mg/dL (65-115); Osmolality Calculated 296 mOsm/kg (285-295); Potassium 5.4 mmol/L (3.5-5.1); Sodium 143 mmol/L (136-145)
[2019-11-03] MEDS: heparin 5,000 unit/mL INJ 1 mL 5000 UNIT SUBCUT ×2 (05:47→09:50)
[2019-11-03 07:52] LABS: Glucose Point of Care 109 mg/dL (70-110)
[2019-11-03] MEDS: FUROsemide 20 mg Tablet PO (08:18)
[2019-11-03] MEDS: aspirin 81 mg EC Tablet PO (08:18)
[2019-11-03] MEDS: albuterol 8 gm MDI 2 PUFF INHALATION ×3 (08:55→15:24)
[2019-11-03] MEDS: FUROsemide 10 mg/mL SDV 10mL 60 MG IVP (09:51)
[2019-11-03] MEDS: piperacillin-tazobactam 3.375 GM in sodium chloride 0.9% (plus) 50 ML IV (09:51)
[2019-11-03 10:43] LABS: Add Urine Microscopic? YES; Bilirubin Urine Neg (NEGATIVE); Blood Urine 2+ (Negative); Glucose Urine UA 2+ (Normal); Ketones Urine Negative (Negative); Leukocyte Esterase Urine Trace (Negative); Nitrate Urine Negative (Negative); Protein Urine 3+ (Negative); Specific Gravity, Urine 1.015 (1.005-1.030); Urine Appearance Clear (CLEAR); Urine Color Yellow (Yellow); Urobilinogen Urine Norm (Negative)
[2019-11-03 11:10] LABS: ABG PCO2 41.5 mmHg (35-45); ABG PH Result 7.32 (7.35-7.45); Alveolar-Arterial Oxygen Gradi 30.9 mmHg (5-10); Arterial Blood Gas Hematocrit 32.6 % (42-52); Base Excess ABG -4.6 mmol/L (-2.0-2.0); Blood Gas Allen Test Pos; Blood Gas Sample Site Brachial, left; Blood Gas Sample Type Arterial; Carboxyhemoglobin 0.6 %THgb (0.4-20.1); HCO3 ABG 21.3 mmol/L (22-26); HGB O2 Sat 92.1 % (95-100); Ionized Calcium Level - ABG 1.2 mmol/L (1.1-1.4); Methemoglobin 1.1 % (0.4-1.5); Oxygen Device OXY MASK; Oxygen Saturation ABG 93.7; Total Hemoglobin 10.6 g/dL (14-18)
[2019-11-03 11:50] LABS: Add Urine Culture? Yes; Bacteria Urine 1+
[2019-11-03 12:13] LABS: Procalcitonin 0.31 ng/mL (0-0.5)
[2019-11-03 12:24] LABS: Iron 33 ug/dL (59-158); Percent Saturation 23.2 % (20-50); Total Iron Binding Capacity 142 mcg/dl; Unsaturated Iron Binding 109 ug/dL (112-347)
--- NOTE | 2019-11-03 13:14 | PM.CONSULT ---
Providers/Reason For Consult Consulting Physican/Specialty*: telenephrology/ shahida fleming md Reason for Consult*: maury on ckd stage 4 Attending Physician: Isidro Lerma MD Primary Care Provider: Magaly Nelson MD History of Present Illness History of Present Illness Lester Perera is a [address] resident, dementia, diastolic dysfunction, htn, DM. Pt here w/ sob, hypoxemia, pna, hypotension- started on iv abx, COVID-19 test sent, on oxygen- given fluids, then lasix, montgomery placed and renal called for MAURY on CKD. his baseline cr is 2 for CKD stage 4. CR of 2.8 mg/dl since jun 2019. now cr of 4.5- 5.1 mg/dl Review of Systems Narrative: confused, sob, weak, cough Meds/Allergies Home Medications and Allergies Home Medications Medication Instructions Recorded Confirmed Type Enema Disposable See Rx Instructions .ROUTE .COMPLEX 11/02/19 11/02/19 History acetaminophen 1,000 mg PO BID PRN 11/02/19 11/02/19 History albuterol sulfate See Rx Instructions .ROUTE .COMPLEX 11/02/19 11/02/19 History albuterol sulfate [ProAir HFA] 2 puff INHALATION 6XD PRN 11/02/19 11/02/19 History alum-mag hydroxide-simeth [Mylanta 7.5 ml PO QID PRN 11/02/19 11/02/19 History Maximum Strength] amlodipine 10 mg PO DAILY 11/02/19 11/02/19 History aspirin [Aspir-81] 81 mg PO DAILY 11/02/19 11/02/19 History bisacodyl 5 mg PO PRN 11/02/19 11/02/19 History bisacodyl 10 mg [place] DAILY PRN 11/02/19 11/02/19 History hydralazine 50 mg PO TID 11/02/19 11/02/19 History inhalational spacing device [Space 11/02/19 11/02/19 History Chamber Plus] irbesartan 75 mg PO DAILY 11/02/19 11/02/19 History lanolin hvdpabh-by-r.pet-ceres See Rx Instructions .ROUTE .COMPLEX 11/02/19 11/02/19 History [Minerin Creme] levofloxacin [Levaquin] See Rx Instructions .ROUTE .COMPLEX 11/02/19 11/02/19 History magnesium hydroxide [Milk of 400 mg PO DAILY PRN 11/02/19 11/02/19 History Magnesia] metoprolol succinate 25 mg PO DAILY 11/02/19 11/02/19 History nitroglycerin [Nitrostat] See Rx Instructions .ROUTE .COMPLEX 11/02/19 11/02/19 History rosuvastatin 5 mg PO DAILY 11/02/19 11/02/19 History Allergies Allergy/AdvReac Type Severity Reaction Status Date / Time ezetimibe Allergy Unknown Verified 11/02/19 18:24 lovastatin Allergy Unknown Verified 11/02/19 18:24 Penicillins Allergy Unknown Verified 11/02/19 18:24 simvastatin Allergy Unknown Verified 11/02/19 18:24 Current Medications Current Medications Generic Name Dose Route Start Last Admin Trade Name Freq PRN Reason Stop Dose Admin Albuterol Sulfate 2 puff 11/02/19 21:25 11/03/19 12:05 Ventolin INHALATION 2 puff 6XD PRN Administration Shortness Of Breath Aspirin 81 mg 11/03/19 09:00 11/03/19 08:18 Aspirin Ec PO 81 mg DAILY BA Administration Furosemide 60 mg 11/03/19 09:00 11/03/19 09:51 Lasix IVP 60 mg Q12H BA Administration Heparin Sodium (Beef Lung) 5,000 unit 11/03/19 09:00 11/03/19 09:50 Heparin SUBCUT 5,000 unit Q12H BA Administration Piperacillin Sod/Tazobactam 50 mls @ 12.5 mls/hr 11/02/19 22:00 11/03/19 09:51 Sod 3.375 gm/ Sodium Chloride IV 12.5 mls/hr Q12H BA Administration Protocol As Directed Vancomycin HCl 1,500 mg/ 250 mls @ 166.667 mls/hr 11/02/19 22:30 11/03/19 00:56 Sodium Chloride IV Infused Q48H BA Infusion Protocol As Directed Insulin Aspart 0 unit 11/03/19 09:00 11/03/19 09:51 Novolog SUBCUT Not Given Q6H BA Protocol Ipratropium [place] 2 puff 11/03/19 12:00 11/03/19 12:05 Atrovent INHALATION 2 puff Q4H.RESPIRATORY BA Administration Methylprednisolone Sodium Succinate 60 mg 11/03/19 11:00 11/03/19 11:10 Solu-Medrol IVP 60 mg Q8H BA Administration PFSH Acute PFSH: Medical History Anemia Dementia Diastolic heart failure Encephalomalacia Right anterior temporal lobe as per previous MRI 2018 Hyperlipidemia Hypertension Nephrolithiasis Stage III chronic kidney disease TIA (transient ischemic attack) Type 2 diabetes mellitus Surgical History H/O lithotripsy History of laparotomy Due to bleeding ulcers Family History (Updated 11/02/19 @ 21:06 by Jeronimo Woodruff MD) Denies family history of Diabetes Dementia Social History Smoking and tobacco status: never smoked Alcohol intake: never Substance/Drug Use: never Housing: [place] Marital status: / Current occupational status: retired Vitals/I&O/Wt Last Vital Signs Temp 98.5 F 11/03/19 12:00 Pulse 97 11/03/19 12:03 Resp 20 H 11/03/19 12:03 BP 99/51 11/03/19 12:00 Pulse Ox 93 11/03/19 12:03 11/02/19 11/03/19 11/03/19 22:59 06:59 14:59 Intake Total 80 / 80 250 / 330 340 / 340 Output Total 0 / 0 Balance 80 / 80 250 / 330 340 / 340 Weight last 48 hrs Weight 127.006 kg Physical Exam Narrative: EXAM NARRATIVE: eldelry, ill appearing, uncomfortable on high flow o2 heent- nc/at neck supple lungs diffuse rales and ronchi heart reg abd- soft, nt, nd ext 1+ edema neuro- follows simple commands, moves. knows name and in hospital Urinary Catheter Management^: Coude: Cath Placed During This Visit: yes Urinary Catheter Date of Insertion: 11/03/19 Urinary Catheter Time of Insertion: 10:00 Data Micro: Micro: Microbiology 11/03/19 09:50 Bacterial Antigens - Final Urine Kidney 11/03/19 09:50 Legionella Urinary Antigen - Final Urine Catheterize d 11/02/19 22:42 Blood Culture - Pr eliminary Blood SPECIMEN [facility] 11/02/19 22:40 Blood Culture - Pr eliminary Blood SPECIMEN [facility] A&P Additional A&P Information 79 yr old man 1. CKD stage 4 b/l cr 2 2. septic shock- renal dose abx. COVID-19 test pending 3. MAURY- likely atn- no hydronephrosis on ct scan -not prerenal- given fluids w/ minimal uop -urinalyisis- likely ATN. though can be a renal pulm disease- send serologies -monitor for dialysis needs - i discussed the case w/ pts son at [phone]- he wants dialysis if needed. he wants pressors if needed. just DNR- i explained the poor prognosis 4. resp distress from pna, chf 5. abnormal bladder on ct- likely chronic bladder disease or uti Consult Attestations Medical Necessity Statement: maury, hypotension, sepsis, pna Time Spent in Patient Care: Greater than 35 minutes Critical Care Time: Critical Care Time (min): 50 Coding Level of Care Code Acute [employer] for Breanna Willson
[2019-11-03] MEDS: FUROsemide 100 MG in sodium chloride 0.9% 40 ML IV (13:44)
--- NOTE | 2019-11-03 14:05 | PM.PN ---
Subjective Subjective: Interval history: Admitted overnight. H&P and labs noted. On examination today morning patient does not have an IV access. As per the nurse patient sugar coating hand was on 14 L nasal cannula which was turned down to 6 L nasal cannula after which while feeding him he had an episode of choking after and he desaturated again since then he is on 40 L nasal cannula again. Patient has had minimal urine output since admission. Medications: Medication Review Details: IV vancomycin, oral levofloxacin, oral Lasix, oral Zofran and home medications. Vitals/I&O/Wt Last Vital Signs Temp 98.5 F 11/03/19 12:00 Pulse 97 11/03/19 12:03 Resp 20 H 11/03/19 12:03 BP 99/51 11/03/19 12:00 Pulse Ox 93 11/03/19 12:03 11/02/19 11/03/19 11/03/19 22:59 06:59 14:59 Intake Total 80 / 80 250 / 330 388.542 / 388.542 Output Total 0 / 0 Balance 80 / 80 250 / 330 388.542 / 388.542 Weight last 48 hrs Weight 127.006 kg Physical Exam Narrative: EXAM NARRATIVE: Morbidly obese male with active respiratory distress currently saturating well on 15 L liters facemask S1, S2, regular, tachycardia present, pansystolic murmur at the apex, S3 gallop, no rubs. JVD elevated. Lungs: Bilateral bronchial breath sounds, coarse crackles present bilaterally more right middle and upper zone and left middle zone, he is using his sternocleidomastoid muscle Visceral obesity, sluggish bowel sounds, bruises over anterior abdominal wall Neurological status not be able to examine properly because of his baseline cognitive impairment and possible septic encephalopathy Bilateral lower extremity edema 1+ No active signs of gangrene ulcer or ischemia of lower extremity Urinary Catheter Management^: Coude: Cath Placed During This Visit: yes Urinary Catheter Date of Insertion: 11/03/19 Urinary Catheter Time of Insertion: 10:00 Data : 11/03/19 05:00 11/03/19 05:00 Micro: Microbiology 11/03/19 09:50 Bacterial Antigens - Final Urine Kidney 11/03/19 09:50 Legionella Urinary Antigen - Final Urine Catheterized 11/02/19 22:42 Blood Culture - Preliminary Blood SPECIMEN COLLECTED 11/02/19 22:40 Blood Culture - Preliminary Blood SPECIMEN COLLECTED A&P Assessment and plan (1) Hypoxic: Status: Acute (2) Sepsis: Status: Acute (3) Encephalopathy: Status: Acute (4) Pneumonia: Status: Acute Qualifiers: Laterality: bilateral Lung location: lower lobe of lung Pneumonia type: due to unspecified organism Qualified Code(s): J18.9 - Pneumonia, unspecified organism (5) Acute kidney injury: Status: Acute (6) Dementia: Status: Acute (7) Acute exacerbation of CHF (congestive heart failure): Status: Acute Additional A&P Information We will ask for an IV line as soon as possible. If patient is not able to get an IV line will have to go for a central line. Will avoid PICC line as blood cultures are still pending. sepsis: Secondary to pneumonia. Sepsis criteria met with leukocytosis, tachypnea, hypotension and infiltrates present on chest x-ray. PSI 117 class IV , moderate mortality risk factor Continue vancomycin at current dose which is renally dosed. We will restart the Zosyn. We will change levofloxacin from oral to IV every 48 hours as per the renal functions. We will de-escalate antibiotics as per the culture results for blood culture, sputum culture, urine culture. Continue inhalers for Ventolin. We will add Advair for steroid use. COVID 19 testing pending. Given the fact patient is on high oxygen supplementation we will have to start him on steroids even though coronavirus testing is not back as benefits outweigh the risk. Methylprednisolone 60 mg every 8 hourly. Oxygen supplementation keeping saturation around 90%. Stat ABG. Diastolic heart failure: Patient does have some symptoms suggestive of heart failure along with CT imaging. We will stop the oral Lasix 20 mg. Because of severe oliguria we will start him on IV Lasix 60 mg every 12. Catheterize the patient. Strict input output charting. Daily weights. Echocardiogram taken but results pending. Acute on chronic kidney disease stage III secondary to cardiorenal etiology. Baseline creatinine seems to be around 1.5?1.9 going back in January. CT abdomen ruled out obstructive uropathy. Streeter catheter as above. Lasix as above. We will consult nephrology for a possible Lasix drip versus dialysis. Hyperkalemia:Seems secondary to medications and ALISSA. Resolved Type 2 diabetes mellitus: Given the fact patient is aspirating. We will keep him n.p.o. Continue insulin sliding scale at current protocol. We will change from AC at bedtime to every 6 hours as patient is n.p.o. now. Hypertension: Holding antihypertensives at the moment secondary to hypotension DNR/DNI Heparin DVT prophylaxis We will discuss with son as charted in the system regarding guarded prognosis given the high oxygen requirement, severe oliguria, along with severe sepsis. Attestations Medical Necessity Statement*: Severe sepsis, encephalopathy, renal failure Critical Care Time: Critical Care Time (min): 80 Coding Level of Care Code Acute Bag Liner for [facility] Fwd Diagnoses Hypoxic R09.02 Sepsis A41.9 Encephalopathy G93.40 Pneumonia J18.9 Laterality: bilateral Lung location: lower lobe of lung Pneumonia type: due to unspecified organism Acute kidney injury N17.9 Dementia F03.90 Acute exacerbation of CHF (congestive heart failure) I50.9
[2019-11-03] MEDS: scopolamine 1.5 Patch 1 PATCH TRANSDERMA (15:11)
[2019-11-03 15:26] LABS: Coronavirus Lab Test PTC SEE COMMENTS
[2019-11-03] MEDS: morphine 4 mg/mL SDV 1 mL 2 MG IVP ×5 (15:30→22:13)
--- NOTE | 2019-11-03 21:27 | USCV_ITS ---
Lester Perera Age: 79 Gender: M : 1940 Exam Date: 11/03/2019 06:33 Ordering Phys: Jeronimo Woodruff MD Technologist: Nancy Crowder Exam Location: [facility] [place] Indication: CHF IN ISOLATION BP: 120 / 56 HR: 86 Rhythm: Sinus Technical Quality: Technically difficult study MEASUREMENTS (Male / Female) Normal Values 2D ECHO LV Diastolic Diameter PLAX 5.5 cm 4.2 - 5.9 / 3.9 - 5.3 cm LV Systolic Diameter PLAX 3.9 cm LV Chamber Size 4.1 cm IVS Diastolic Thickness 1.7 cm 0.6 - 1.0 / 0.6 - 0.9 cm IVS Systolic Thickness 1.3 cm LVPW Diastolic Thickness 1.4 cm 0.6 - 1.0 / 0.6 - 0.9 cm LVPW Systolic Thickness 1.5 cm RV Chamber Size 3.8 cm LVOT Diameter 2.0 cm LV Ejection Fraction 2D Teich 55.7 % LV Ejection Fraction MOD 2C 11.9 % LV Ejection Fraction 2C AL 14.5 % LA Diameter 4.7 cm LA Width 3.7 cm LA Height 3.4 cm RA Width 4.5 cm RA Height 4.6 cm Aorta at Sinotubular Diameter 2.9 cm M-MODE LV Diastolic Diameter MM 4.7 cm 4.2 - 5.9 / 3.9 - 5.3 cm LV Systolic Diameter MM 4.3 cm LV Ejection Fraction MM Teich 20.5 % IVS Diastolic Thickness MM 1.6 cm 0.6 - 1.0 / 0.6 - 0.9 cm IVS Systolic Thickness MM 1.6 cm LVPW Diastolic Thickness MM 1.2 cm 0.6 - 1.0 / 0.6 - 0.9 cm LVPW Systolic Thickness MM 2.0 cm RV Diastolic Diameter MM 2.2 cm Aortic Annulus Diameter 3.6 cm LA Ao Ratio MM 1.3 MV E Point Septal Separation 0.8 cm DOPPLER LVOT Peak Velocity 84.0 cm/s MV Area PHT 6.5 cm squared Mitral E to A Ratio 1.1 MV E' Velocity 6.0 cm/s Mitral E to MV E' Ratio 17.3 Mitral E to LV E' Lateral Ratio 18.4 Mitral E to LV E' Septal Ratio 16.6 TV Peak E Velocity 53.0 cm/s Right Atrial Pressure 3.0 mmHg PV Peak Velocity 58.0 cm/s RV Acceleration Time 0.2 s RV Ejection Time 0.3 s RV AcT/ET 0.5 FINDINGS Left Ventricle Normal left ventricular cavity size. Moderately decreased left ventricular systolic function. Left ventricular ejection fraction is estimated at 40 %. There is possible hypokinesis of mid to apical anteroseptal and inferoseptal betancourt. Grade II diastolic dysfunction, moderately elevated filling pressures. Right Ventricle Right ventricle not well visualized. Probably normal right ventricle systolic function. Right Atrium Right atrium not well visualized. Normal right atrial size. Right atrial pressure estimated at 3 mmHg. Left Atrium Left atrium not well visualized. Mitral Valve Severe mitral annular calcification. Thickened mitral valve. No mitral valve stenosis. Trace mitral valve regurgitation. Aortic Valve Thickened and calcified aortic valve. Tricuspid Valve Tricuspid valve not well visualized. Pulmonic Valve Pulmonic valve not well visualized. Pericardium No pericardial effusion. Right pleural effusion. Aorta Aorta not well visualized. CONCLUSIONS 1. This is a technically very difficult study. 2. Normal left ventricular cavity size. Moderately decreased left ventricular systolic function. Left ventricular ejection fraction is estimated at 40 %. There is possible hypokinesis of mid to apical anteroseptal and inferoseptal betancourt. Grade II diastolic dysfunction, moderately elevated filling pressures. 3. Probably normal right ventricle systolic function. 4. When compared to previous echocardiogram dated 02/25/2018, left ventricular systolic function seems to have decreased and there is new wall motion abnormality. Malorie Youngblood MD (Electronically Signed) Final Date: 03 November 2019 15:53 S
[2019-11-04] VITALS (18 sets, daily range): BP systolic 92–139; BP diastolic 52–70; PULSE 93–99; RESP 10–26; TEMP 36.1–37.4; O2SAT 88–99
--- NOTE | 2019-11-04 08:29 | PC.NURSE ---
patient resting calmly, acknowledged negative when i asked him about pain. respiratory rate increased to mid 20s when he began to rouse. tapered off. Son called about 08:10 to check on father ;
[2019-11-04 08:43] LABS: Glucose Point of Care 132 mg/dL (70-110)
[2019-11-04] MEDS: morphine 4 mg/mL SDV 1 mL 2 MG IVP ×4 (08:52→22:21)
--- NOTE | 2019-11-04 09:29 | PM.PN ---
Subjective Subjective: Interval history: Occasional moan, not opening eyes. Vitals/I&O/Wt Last Vital Signs Temp 98.2 F 11/04/19 07:43 Pulse 95 11/04/19 08:26 Resp 22 H 11/04/19 08:52 BP 108/62 11/04/19 07:43 Pulse Ox 93 11/04/19 08:26 11/03/19 11/04/19 11/04/19 22:59 06:59 14:59 Intake Total 0 / 391.609 0 / 391.609 0 / 0 Output Total 550 / 550 100 / 650 Balance -550 / -158.391 -100 / -258.391 0 / 0 Weight last 48 hrs Weight 127.006 kg Physical Exam Const: COMMON NORMALS: no apparent distress; negative for oriented x3 NUTRITIONAL APPEARANCE: obese ORIENTATION/CONSCIOUSNESS: Yes obtunded HENMT: COMMON NORMALS: oropharynx normal Neck/C-Spine: COMMON NORMALS: no JVD Resp: COMMON NORMALS: normal respiratory effort and clear to auscultation bilaterally AUSCULTATION: clear to auscultation bilaterally Cardio: COMMON NORMALS: no JVD, regular rhythm, S1 normal heart sound, S2 normal heart sound and no murmurs RATE: tachycardic RHYTHM: regular rhythm HEART SOUNDS: S1 normal and S2 normal GI: COMMON NORMALS: normal to inspection, nondistended, normoactive bowel sounds, soft to palpation and non-tender PALPATION: Yes soft Extremity: COMMON NORMALS: no joint enlargement and no pedal edema Neuro: COMMON NORMALS: moves all extremities; negative for oriented x3 Skin: COMMON NORMALS: no rashes or lesions noted GENERAL SKIN EXAM: no rashes or lesions noted Urinary Catheter Management^: Coude: Cath Placed During This Visit: yes Reason for Continuing Indwelling Catheter: Accurate Measurement of Urinary Output in Critically Ill Patients Urinary Catheter Date of Insertion: 11/03/19 Urinary Catheter Time of Insertion: 10:00 Data : 11/03/19 05:00 11/03/19 05:00 Micro: Microbiology 11/03/19 09:50 Urine Culture - Preliminary Urine,Clean Catch 11/02/19 22:42 Blood Culture - Preliminary Blood NEGATIVE TO DATE 11/02/19 22:40 Blood Culture - Preliminary Blood NEGATIVE TO DATE 11/03/19 11:45 MRSA Culture - Final Nose 11/03/19 09:50 Bacterial Antigens - Final Urine Kidney 11/03/19 09:50 Legionella Urinary Antigen - Final Urine Catheterized A&P Assessment and plan (1) Comfort measures only status: Continue comfort measures on general medical floor. Status: Acute (2) Hypoxic: Status: Acute (3) Sepsis: Status: Acute (4) Acute exacerbation of CHF (congestive heart failure): Status: Acute (5) Acute kidney injury: Status: Acute (6) Encephalopathy: Status: Acute (7) Pneumonia: Status: Acute Qualifiers: Laterality: bilateral Lung location: lower lobe of lung Pneumonia type: due to unspecified organism Qualified Code(s): J18.9 - Pneumonia, unspecified organism (8) Dementia: Status: Acute (9) Hyperkalemia: Status: Acute (10) Stage III chronic kidney disease: Status: Acute (11) Type 2 diabetes mellitus: Status: Acute (12) Hypertension: Status: Acute Attestations Medical Necessity Statement*: Continue end of life comfort measures. Coding Level of Care Code Acute English Teacher for [facility] Diagnoses Comfort measures only status Z51.5 Hypoxic R09.02 Sepsis A41.9 Acute exacerbation of CHF (congestive heart failure) I50.9 Acute kidney injury N17.9 Encephalopathy G93.40 Pneumonia J18.9 Laterality: bilateral Lung location: lower lobe of lung Pneumonia type: due to unspecified organism Dementia F03.90 Hyperkalemia E87.5 Stage III chronic kidney disease N18.3 Type 2 diabetes mellitus E11.9 Hypertension I10
[2019-11-04 12:13] LABS: Glucose Point of Care 109 mg/dL (70-110)
[2019-11-04 14:35] LABS: Anti-Nuclear Antibody Pattern Nuclear, Speckled; Anti-Nuclear Antibody Screen POSITIVE (NEGATIVE); Anti-Nuclear Antibody Titer 1:40 titer
[2019-11-04 17:10] LABS: Glucose Point of Care 106 mg/dL (70-110)
[2019-11-05 03:00] VITALS: BP 111/70; PULSE 94; RESP 20; TEMP 36.6; O2SAT 92
[2019-11-05 08:10] VITALS: PULSE 93; RESP 22; O2SAT 92
--- NOTE | 2019-11-05 08:26 | PC.SOCIAL ---
IMM Update PG 2 of IMM updated in chart, will update Ronaldo De Luna when we talk to him.
--- NOTE | 2019-11-05 09:25 | PC.NURSE ---
Patient had removed oxy mask noted patient resp effort and pattern has not changed on room air. Will monitor.
[2019-11-05 10:44] VITALS: BP 79/43; PULSE 82; RESP 13; TEMP 36.1; O2SAT 64
--- NOTE | 2019-11-05 12:07 | PC.NURSE ---
Pt is on comfort care.
--- NOTE | 2019-11-05 13:17 | PC.NURSE ---
At around 1100 this am family face time with patient. Staff currently in room allowing face time with the son. Resp remain slightly labored, no s/s of distress or acute pain. Staff will continue to monitor closely for comfort and assist family with closure during this time.
--- NOTE | 2019-11-05 13:54 | P.PN_ITS ---
Subjective Subjective: Interval history: Occasional whimper, not in distress. Vitals/I&O/Wt Last Vital Signs Temp 97.0 F L 11/05/19 10:44 Pulse 82 11/05/19 10:44 Resp 13 11/05/19 10:44 BP 79/43 11/05/19 10:44 Pulse Ox 64 L 11/05/19 10:44 11/04/19 11/05/19 11/05/19 22:59 06:59 14:59 Output Total 50 / 50 Balance -50 / -50 Physical Exam Const: COMMON NORMALS: no apparent distress; negative for oriented x3 NUTRITIONAL APPEARANCE: obese ORIENTATION/CONSCIOUSNESS: Yes obtunded Neck/C-Spine: COMMON NORMALS: no JVD Resp: COMMON NORMALS: normal respiratory effort and clear to auscultation bilaterally AUSCULTATION: clear to auscultation bilaterally OTHER: Breathing occasionally irregular. Cardio: COMMON NORMALS: no JVD, regular rhythm, S1 normal heart sound, S2 normal heart sound and no murmurs RATE: tachycardic RHYTHM: regular rhythm HEART SOUNDS: S1 normal and S2 normal GI: COMMON NORMALS: normal to inspection, nondistended, normoactive bowel sounds, soft to palpation and non-tender PALPATION: Yes soft Extremity: COMMON NORMALS: no joint enlargement and no pedal edema Neuro: COMMON NORMALS: moves all extremities; negative for oriented x3 Skin: COMMON NORMALS: no rashes or lesions noted GENERAL SKIN EXAM: no rashes or lesions noted Urinary Catheter Management^: Coude: Cath Placed During This Visit: yes Reason for Continuing Indwelling Catheter: Hospice/Comfort/Palliative Care Urinary Catheter Date of Insertion: 11/03/19 Urinary Catheter Time of Insertion: 10:00 Data : 11/03/19 05:00 11/03/19 05:00 Micro: Microbiology 11/03/19 09:50 Urine Culture - Final Urine,Clean Catch A&P Assessment and plan (1) Comfort measures only status: Continue comfort measures. Status: Acute (2) Hypoxic: Status: Acute (3) Sepsis: Status: Acute (4) Acute exacerbation of CHF (congestive heart failure): Status: Acute (5) Acute kidney injury: Status: Acute (6) Encephalopathy: Status: Acute (7) Pneumonia: Status: Acute Qualifiers: Laterality: bilateral Lung location: lower lobe of lung Pneumonia type: due to unspecified organism Qualified Code(s): J18.9 - Pneumonia, unspecified organism (8) Dementia: Status: Acute (9) Hyperkalemia: Status: Acute (10) Stage III chronic kidney disease: Status: Acute (11) Type 2 diabetes mellitus: Status: Acute (12) Hypertension: Status: Acute Attestations Medical Necessity Statement*: Continue end-of-life supportive care. Coding Level of Care Code Acute Chief Security And Safety Officer for [facility] Fwd Exam Comprehensive Diagnoses Comfort measures only status Z51.5 Hypoxic R09.02 Sepsis A41.9 Acute exacerbation of CHF (congestive heart failure) I50.9 Acute kidney injury N17.9 Encephalopathy G93.40 Pneumonia J18.9 Laterality: bilateral Lung location: lower lobe of lung Pneumonia type: due to unspecified organism Dementia F03.90 Hyperkalemia E87.5 Stage III chronic kidney disease N18.3 Type 2 diabetes mellitus E11.9 Hypertension I10
[2019-11-05] MEDS: morphine 4 mg/mL SDV 1 mL 2 MG IVP (14:51)
[2019-11-05 19:00] VITALS: BP 108/65; PULSE 82; RESP 9; TEMP 36.8; O2SAT 67
[2019-11-06 00:03] VITALS: RESP 16
[2019-11-06] MEDS: morphine 4 mg/mL SDV 1 mL 2 MG IVP ×3 (00:03→08:06)
[2019-11-06 02:52] VITALS: BP 102/62; PULSE 79; RESP 12; O2SAT 90
[2019-11-06] MEDS: lanolin oint 7 gm 1 APPLIC TOPICAL (04:43)
[2019-11-06 04:53] VITALS: RESP 12; O2SAT 92
[2019-11-06 07:55] VITALS: PULSE 94; RESP 20; O2SAT 93
[2019-11-06 11:00] VITALS: BP 101/58; PULSE 78; RESP 8; TEMP 37.2; O2SAT 90
--- NOTE | 2019-11-06 13:05 | PM.DCS ---
Discharge Providers Date of Admission: 11/02/19 19:49 Date of Discharge: November 06, 2019 Attending Provider at Admission: Jeronimo Woodruff MD Attending Provider at Discharge: Joel Fong Primary Care Provider: Magaly Nelson MD Diagnoses at Discharge Discharge Diagnosis (1) Comfort measures only status: Status: Acute (2) Hypoxic: Status: Acute (3) Sepsis: Status: Acute (4) Acute exacerbation of CHF (congestive heart failure): Status: Acute (5) Acute kidney injury: Status: Acute (6) Encephalopathy: Status: Acute (7) Pneumonia: Status: Acute Qualifiers: Laterality: bilateral Lung location: lower lobe of lung Pneumonia type: due to unspecified organism Qualified Code(s): J18.9 - Pneumonia, unspecified organism (8) Dementia: Status: Acute (9) Hyperkalemia: Status: Acute (10) Stage III chronic kidney disease: Status: Acute (11) Type 2 diabetes mellitus: Status: Acute (12) Hypertension: Status: Acute Reason for Visit Reason for Visit: Reason For Visit: sob Hospital Course Hospital Course: 79-year-old gentleman with history of DM 2, TIA, stage III chronic kidney disease, nephrolithiasis, HTN, HLD, diastolic and his heart failure, dementia was admitted from group home due to respiratory distress, with multiorgan failure on presentation, hypoxic with bilateral infiltrates with pneumonia, CHF, with sepsis and acute kidney injury, elevated troponin. Hypotensive on presentation. Received treatment with IV antibiotics with Zosyn and Levaquin, BiPAP support. IV steroid. Conservative fluid management strategy was used due to CHF. Initially with hyperkalemia. He was assessed by nephrology. Started on Lasix drip. Was tested for COVID-19 and found negative. Despite treatment, with worsening renal function, with poor airway protection, with episode of choking, and subsequently worsening mental status. With poor unimproving condition on discussion of goals of care with family they had elected for transition to comfort measures only which have been initiated. Physical Exam Const: COMMON NORMALS: no apparent distress NUTRITIONAL APPEARANCE: obese ORIENTATION/CONSCIOUSNESS: Yes obtunded OTHER: Occasional moan. HENMT: COMMON NORMALS: oropharynx normal Neck/C-Spine: COMMON NORMALS: no JVD Resp: COMMON NORMALS: normal respiratory effort and clear to auscultation bilaterally AUSCULTATION: clear to auscultation bilaterally Cardio: COMMON NORMALS: no JVD, regular rhythm, S1 normal heart sound, S2 normal heart sound and no murmurs RHYTHM: regular rhythm HEART SOUNDS: S1 normal and S2 normal GI: COMMON NORMALS: normal to inspection, nondistended, normoactive bowel sounds, soft to palpation and non-tender PALPATION: Yes soft Extremity: COMMON NORMALS: no joint enlargement and no pedal edema Neuro: COMMON NORMALS: moves all extremities Skin: COMMON NORMALS: no rashes or lesions noted GENERAL SKIN EXAM: no rashes or lesions noted Urinary Catheter Management^: Coude: Cath Placed During This Visit: yes Reason for Continuing Indwelling Catheter: Hospice/Comfort/Palliative Care Urinary Catheter Date of Insertion: 11/03/19 Urinary Catheter Time of Insertion: 10:00 Discharge Data Data Completed and Pending: Completed Studies During Hospitalization Category Date Time Status CT chest abd pel wo con Stat Cat Scan 11/02/19 19:53 Completed XR chest 1V kiersten ble [id number] Stat Exams 11/02/19 16:38 Completed CV echo complete* [id number] Routine Ultrasound 11/03/19 21:27 Completed Pending at discharge Category Date Time Status DINAH Screen w/ Ref kiet Routine Lab 11/03/19 13:34 Results Anti-Neutrophil C utoplasmic AB Rout ine Lab 11/03/19 05:00 Received Blood Culture Sta t Lab 11/02/19 22:42 Results Sputum Culture an d Gram Stain Stat Lab 11/02/19 21:25 Uncollected Vitals: Last Vital Signs Temp 98.9 F 11/06/19 11:00 Pulse 78 11/06/19 11:00 Resp 8 L 11/06/19 11:00 BP 101/58 11/06/19 11:00 Pulse Ox 90 11/06/19 11:00 Discharge Plan Discharge Patient Disposition: Xfer SNF Condition: Serious Prescriptions: New morphine 4 mg/mL Solution 2 mg IVP Q1H PRN (Reason: Severe Pain) 3 Days Qty: 25 RF: 0 Lorazepam Intensol 2 mg/mL concentrate 0.5 mg PO Q4H PRN (Reason: anxiety) Qty: 30 RF: 0 scopolamine base [Transderm-Scop] 1 mg over 3 days Patch 3 Day 1 patch transdermal Q3D Qty: 3 RF: 0 Continued acetaminophen 500 mg Tablet 1,000 mg PO BID PRN (Reason: Pain) RF: 0 Milk of Magnesia 400 mg/5 mL Suspension 400 mg PO DAILY PRN (Reason: Constipation) RF: 0 bisacodyl 10 mg Suppository 10 mg VT DAILY PRN (Reason: Constipation) RF: 0 ProAir HFA 90 mcg/actuation Hfa Aerosol Inhaler 2 puff INHALATION 6XD PRN (Reason: Shortness Of Breath) RF: 0 bisacodyl 5 mg Tablet 5 mg PO PRN RF: 0 Enema Disposable See Rx Instructions .ROUTE .COMPLEX RF: 0 Discontinued albuterol sulfate 2.5 mg /3 mL (0.083 %) Solution For Nebulization See Rx Instructions .ROUTE .COMPLEX RF: 0 Aspir-81 81 mg Tablet,Delayed Release (Dr/Ec) 81 mg PO DAILY RF: 0 amlodipine 10 mg Tablet 10 mg PO DAILY RF: 0 Nitrostat 0.4 mg Tablet, Sublingual See Rx Instructions .ROUTE .COMPLEX RF: 0 irbesartan 75 mg Tablet 75 mg PO DAILY RF: 0 hydralazine 50 mg Tablet 50 mg PO TID RF: 0 metoprolol succinate 25 mg Tablet Extended Release 24 Hr 25 mg PO DAILY RF: 0 Levaquin 750 mg Tablet See Rx Instructions .ROUTE .COMPLEX RF: 0 Mylanta Maximum Strength 400-400-40 mg/5 mL Suspension 7.5 ml PO QID PRN (Reason: UNKNOWN) RF: 0 rosuvastatin 5 mg Tablet 5 mg PO DAILY RF: 0 Minerin Creme Cream See Rx Instructions .ROUTE .COMPLEX RF: 0 No Action (DME) Space Chamber Plus Spacer MISCELLANEOUS RF: 0 Discharge Orders: Discharge Order (Routine); Ordered 11/06/19 Ordered By: Joel Fong Referrals: [facility] [Outside] Magaly Nelson MD [Primary Care Provider] - Todd Antony Jr, MD [Family Provider] - 4-7 days Activity Restrictions/Additional Instructions: End of life comfort care. Nasal cannula oxygen as needed for comfort. Discharge Attestations Time Spent in Discharge Care*: greater than 30 min Quality Metrics Clinical Quality Measures During this hospital stay, did patient experience: None Coding Level of Care Code Acute Web Services Developer for [facility] Fwd Diagnoses Comfort measures only status Z51.5 Hypoxic R09.02 Sepsis A41.9 Acute exacerbation of CHF (congestive heart failure) I50.9 Acute kidney injury N17.9 Encephalopathy G93.40 Pneumonia J18.9 Laterality: bilateral Lung location: lower lobe of lung Pneumonia type: due to unspecified organism Dementia F03.90 Hyperkalemia E87.5 Stage III chronic kidney disease N18.3 Type 2 diabetes mellitus E11.9 Hypertension I10
[2019-11-06 14:42] VITALS: BP 101/58; PULSE 78; RESP 8; TEMP 37.2; O2SAT 90
[2019-11-06 22:47] LABS: ANCA Interp Negative (Negative)
== END 2019-11-06 14:43 | disposition skilled nursing facility (03) | DRG 871 ==
LOC: ER 19:56 → ICU 20:23 → MEDSURG 11-04 14:30
PROVIDERS: Family Medicine; Internal Medicine Nephrology; Student in an Organized Health Care Education/Training Program; Admitting Provider Internal Medicine; Emergency Provider Emergency Medicine; Family Provider Family Medicine; PCP Internal Medicine; Visit Provider Internal Medicine
DX: A41.9 Sepsis, unspecified organism (principal); G93.41 Metabolic encephalopathy; J18.9 Pneumonia, unspecified organism; I50.33 Acute on chronic diastolic (congestive) heart failure; I13.0 Hypertensive heart and chronic kidney disease with heart failure and stage 1 through stage 4 chronic kidney disease, or unspecified chronic kidney disease; N17.9 Acute kidney failure, unspecified; E87.2 Acidosis; E11.22 Type 2 diabetes mellitus with diabetic chronic kidney disease; E87.5 Hyperkalemia; Z51.5 Encounter for palliative care; F03.90 Unspecified dementia, unspecified severity, without behavioral disturbance, psychotic disturbance, mood disturbance, and anxiety; E78.5 Hyperlipidemia, unspecified; Z79.82 Long term (current) use of aspirin; Z66 Do not resuscitate; Z86.73 Personal history of transient ischemic attack (TIA), and cerebral infarction without residual deficits; D63.1 Anemia in chronic kidney disease
CPT/HCPCS: 12345; 36415; 36416; 36600; 51702; 71045; 71250; 74176; 80048; 80051; 80053; 81001; 82810; 82962; 83516; 83540; 83550; 83880; 83986; 84145; 84484; 85025; 86038; 86403; 87040; 87086; 87449; 87635; 87641; 93005; 93306; 94640; 96372; 96374; 96375; 99283; J0610; J1644; J1815; J1940; J1956; J2270; J2543; J2930; J3370; J3535; J7030; J7050; Q3014